=== PATIENT | female | born 1970 ===

== ENCOUNTER 2019-06-05 05:30 | Emergency (ER) | payer BC ==
[2019-06-05] MEDS ORDERED: Morphine 4 MG/ML Syringe IVPUSH ONE (05:43)
[2019-06-05] MEDS ORDERED: Ondansetron 4 MG/2 ML SDV IVPUSH ONE (05:44)
--- NOTE | 2019-06-05 05:45 | EDM.PDOC ---
ED HPI GENERAL MEDICAL PROBLEM - General Chief Complaint: Genitourinary Problem Stated Complaint: BACK PAIN Time Seen by Provider: 06/05/19 05:38 Source of Information: Reports: Patient History Limitations: Reports: No Limitations - History of Present Illness INITIAL COMMENTS - FREE TEXT/NARRATIVE: CC right flank pain HPI: This is a 48-year-old female who awoke with right flank pain this morning. No dysuria or hematuria fever vomiting diarrhea trauma numbness tingling weakness PMHX/PSHX: Hypertension Social History: Negative for tobacco, negative for alcohol, negative for street drugs or marijuana Family history: Hypertension ROS: see chart PE: VS afebrile vital signs stable General: No apparent distress Head: Atraumatic normocephalic no lumps bumps or bruises Eyes: EOMI PERRLA Ears: TMs intact no hemotympanum no signs of infection no mastoid tenderness Nose: No epistaxis nares patent no septal wall hematoma Throat: No pharyngeal erythema or exudate no tonsillar enlargement Neck: Supple, no cervical lymphadenopathy Chest wall: No point tenderness Heart: Regular rate and rhythm without murmur gallop or rub Lungs: Clear to auscultation and percussion without rales rhonchi or wheeze Abdomen: Soft nontender nondistended without guarding rigidity or rebound Neck: No spinal point tenderness full range of motion in all 6 directions Back: No spinal paraspinal or CVA tenderness Extremities: full rom through out. no effusions skin: Warm dry intact no rashes neurologic: cranial nerves II through XII intact. No focal motor or sensory deficits noted MDM: Differential diagnosis: Aortic dissection pyelonephritis ureterolithiasis musculoskeletal back pain ED course: BC chemistries CT scan of the abdomen and pelvis and urinalysis all normal. Patient has no neurologic deficits consistent with cauda equina cord syndrome etc. No evidence of aortic dissection ureterolithiasis or pyelonephritis. I suspect musculoskeletal pain. Patient discharged with prescriptions for ibuprofen Flexeril and Lidoderm patches Diagnosis: Back pain Disposition: Home right lower-mid back Pain Score (Numeric/FACES): 8 - Related Data Allergies Allergy/AdvReac Type Severity Reaction Status Date / Time acetaminophen [From Percocet] Allergy Cannot Verified 06/05/19 05:41 Remember oxycodone HCl [From Percocet] Allergy Difficulty Verified 06/05/19 05:41 Breathing Home Meds: Home Meds FLUoxetine HCl [Fluoxetine HCl] 20 mg PO DAILY 08/04/14 [History] Lisinopril 1 tab PO DAILY 08/04/14 [History] Omeprazole Magnesium [Prilosec Otc] 1 tab PO DAILY 08/04/14 [History] Cyclobenzaprine [Flexeril] 10 mg PO BID #20 tab 06/05/19 [Rx] Ibuprofen 800 mg PO TID #20 tablet 06/05/19 [Rx] Lidocaine 5% [Lidoderm 5%] 1 patch TOP DAILY #20 patch 06/05/19 [Rx] ED ROS GENERAL - Review of Systems Review Of Systems: Comprehensive ROS is negative, except as noted in HPI. ED EXAM, RENAL/ - Physical Exam Exam: See Below Text/Narrative:: See my dictation Course - Vital Signs Last Recorded V/S: Last Vital Signs Temp 36.1 C 06/05/19 05:43 Pulse 82 06/05/19 05:43 Resp 18 06/05/19 05:43 BP 135/92 H 06/05/19 05:43 Pulse Ox 96 06/05/19 05:43 - Orders/Labs/Meds Labs: Laboratory Tests 06/05/19 06/05/19 06/05/19 Range/Units 05:50 05:55 05:55 WBC 6.91 (4.0-11.0) K/uL RBC 4.71 (4.30-5.90) M/uL Hgb 13.7 (12.0-16.0) g/dL Hct 41.5 (36.0-46.0) % MCV 88.1 (80.0-98.0) fL MCH 29.1 (27.0-32.0) pg MCHC 33.0 (31.0-37.0) g/dL RDW Std Deviation 43.9 (28.0-62.0) fl RDW Coeff of Flavio 14 (11.0-15.0) % Plt Count 234 (150-400) K/uL MPV 9.70 (7.40-12.00) fL Neut % (Auto) 42.7 L (48.0-80.0) % Lymph % (Auto) 44.6 H (16.0-40.0) % Sierra % (Auto) 10.1 (0.0-15.0) % Eos % (Auto) 2.3 (0.0-7.0) % Baso % (Auto) 0.3 (0.0-1.5) % Neut # (Auto) 3.0 (1.4-5.7) K/uL Lymph # (Auto) 3.1 H (0.6-2.4) K/uL Sierra # (Auto) 0.7 (0.0-0.8) K/uL Eos # (Auto) 0.2 (0.0-0.7) K/uL Baso # (Auto) 0.0 (0.0-0.1) K/uL Nucleated RBC % 0.0 /100WBC Nucleated RBCs # 0 K/uL Sodium 141 (136-145) mmol/L Potassium 4.0 (3.5-5.1) mmol/L Chloride 104 (98-107) mmol/L Carbon Dioxide 26.4 (21.0-32.0) mmol/L BUN 16 (7.0-18.0) mg/dL Creatinine 0.8 (0.6-1.0) mg/dL Est Cr Clr Drug Dosing 86.75 mL/min Estimated GFR (MDRD) > 60.0 ml/min Glucose 96 (74-106) mg/dL Calcium 9.0 (8.5-10.1) mg/dL Urine Color YELLOW Urine Appearance CLEAR Urine pH 6.0 (5.0-8.0) Ur Specific Prim 1.025 (1.001-1.035) Urine Protein NEGATIVE (NEGATIVE) mg/dL Urine Glucose (UA) NEGATIVE (NEGATIVE) mg/dL Urine Ketones NEGATIVE (NEGATIVE) mg/dL Urine Occult Blood NEGATIVE (NEGATIVE) Urine Nitrite NEGATIVE (NEGATIVE) Urine Bilirubin NEGATIVE (NEGATIVE) Urine Urobilinogen 0.2 (<2.0) EU/dL Ur Leukocyte Esterase NEGATIVE (NEGATIVE) Meds: Medications Discontinued Medications Generic Name Dose Route Start Last Admin Trade Name Freq PRN Reason Stop Dose Admin Ketorolac Tromethamine 15 mg 06/05/19 06:52 Toradol IVPUSH 06/05/19 06:53 ONETIME ONE Morphine Sulfate 4 mg 06/05/19 05:43 06/05/19 06:19 Morphine IVPUSH 06/05/19 05:44 4 mg ONETIME ONE Administration Ondansetron HCl 4 mg 06/05/19 05:44 06/05/19 06:18 Zofran IVPUSH 06/05/19 05:45 4 mg ONETIME ONE Administration Departure - Departure Time of Disposition: 06:56 Disposition: Home, Self-Care 01 Clinical Impression: Back pain Qualifiers: Back pain location: back pain in unspecified location Chronicity: unspecified Back pain laterality: unspecified Qualified Code(s): M54.9 - Dorsalgia, unspecified - Discharge Information Prescriptions: Cyclobenzaprine [Flexeril] 10 mg PO BID #20 tab Ibuprofen 800 mg PO TID #20 tablet Lidocaine 5% [Lidoderm 5%] 1 patch TOP DAILY #20 patch Referrals: Elian Kessler MD [Primary Care Provider] - Forms: ED Department Discharge Additional Instructions: Avoid heavy lifting. Follow-up with your primary care doctor in 2 to 3 days. Apply warm compresses to the sore area. Sepsis Event Note - Focused Exam Vital Signs: Vital Signs Temp Pulse Resp BP Pulse Ox 06/05/19 05:43 36.1 C 82 18 135/92 H 96 Date Exam was Performed: 06/05/19 Time Exam was Performed: 06:55
[2019-06-05 06:28] LABS: BLOOD UREA NITROGEN,BUN 16 mg/dL (7.0-18.0); CARBON DIOXIDE,CO2 26.4 mmol/L (21.0-32.0); CHLORIDE,CL 104 mmol/L (98-107); GLUCOSE RANDOM 96 mg/dL (74-106); SODIUM,NA 141 mmol/L (136-145)
--- NOTE | 2019-06-05 06:45 | CT ---
Indication: Right flank pain Technique: A CT volumetric acquisition was performed of the abdomen and pelvis without IV contrast. Comparison: None available Findings: The lung bases are clear. There is no evidence of pleural or pericardial fluid. The unenhanced liver and spleen demonstrate normal size and uniform density. No inflammatory changes are noted about the pancreas. The gallbladder and bile ducts appear normal. Adrenal glands have normal morphology. Kidneys are symmetric in size. There is no evidence of edema or hydronephrosis. On axial image 58 there is a faint 1 mm calculus within the mid right kidney. There is no evidence of perinephric fluid stranding. There is no evidence retroperitoneal adenopathy. Appendix lies in a retrocecal location but appears normal. No abnormalities are noted within the small intestine or colon. The patient is status post hysterectomy. The ovaries appear normal. Urinary bladder is partially filled and there is no evidence of a bladder calculus or diverticulum. Impression: Right nephrolithiasis but without evidence of ureteral calculus or hydronephrosis. Please note that all CT scans at this facility use dose modulation, iterative reconstruction, and/or weight-based dosing when appropriate to reduce radiation dose to as low as reasonably achievable. Dictated by Rush Gilman MD @ Jun 05 2019 6:31AM Signed by Dr. Rush Gilman @ Jun 05 2019 6:42AM
[2019-06-05] MEDS ORDERED: Ketorolac 15 MG/ML SDV IVPUSH ONE (06:52)
[2019-06-05 07:28] VITALS: BP 123/70; PULSE 71
== END 2019-06-05 07:30 | disposition home or self-care (01) ==
LOC: MW.ED 05:30
DX: M54.5 Low back pain (principal); M54.6 Pain in thoracic spine; Z88.8 Allergy status to other drugs, medicaments and biological substances; Z79.899 Other long term (current) drug therapy
CPT/HCPCS: 36415; 74176; 80048; 81003; 85025; 96374; 96375; 99284; J2270; J2405

== ENCOUNTER 2021-07-23 10:41 | Emergency (ER) | payer BC, OTHER ==
[2021-07-23] MEDS ORDERED: Sodium Chloride 0.9% 2.5 ML Syringe FLUSH PRN (11:04)
[2021-07-23] MEDS ORDERED: Sodium Chloride 0.9% 10 ML Syringe FLUSH PRN (11:04)
[2021-07-23] MEDS ORDERED: Lactated Ringers 1,000 ML IV ONE (11:05)
[2021-07-23] MEDS ORDERED: Ondansetron 4 MG/2 ML SDV IVPUSH ONE (11:06)
[2021-07-23 12:26] LABS: BLOOD UREA NITROGEN,BUN 21 mg/dL (7.0-18.0); CARBON DIOXIDE,CO2 27.7 mmol/L (21.0-32.0); CHLORIDE,CL 100 mmol/L (98-107); GLUCOSE RANDOM 126 mg/dL (74-106); POTASSIUM,K 3.9 mmol/L (3.5-5.1); SODIUM,NA 137 mmol/L (136-145)
[2021-07-23] MEDS ORDERED: Ketorolac 30 MG/ML SDV IVPUSH ONE (12:53)
[2021-07-23 13:12] VITALS: BP 126/74; PULSE 91
[2021-07-23 14:19] LABS: CORONAVIRUS COVID-19 NAA NEGATIVE (NEGATIVE); INFLUENZA A NAA NEGATIVE (NEGATIVE); INFLUENZA B NAA NEGATIVE (NEGATIVE)
== END 2021-07-23 13:04 | disposition home or self-care (01) ==
LOC: MW.ED 10:41
DX: A08.4 Viral intestinal infection, unspecified (principal); I10 Essential (primary) hypertension; K21.9 Gastro-esophageal reflux disease without esophagitis; Z88.5 Allergy status to narcotic agent; Z88.8 Allergy status to other drugs, medicaments and biological substances; Z79.899 Other long term (current) drug therapy; Z20.822 Contact with and (suspected) exposure to COVID-19
CPT/HCPCS: 0240U; 36415; 80053; 83605; 83735; 85025; 87045; 87046; 87449; 87899; 96374; 99284; J2405; J3490; J7120

== ENCOUNTER 2021-10-28 14:32 | Emergency (ER) | payer OTHER ==
[2021-10-28 19:43] VITALS: BP 127/92; PULSE 89
== END 2021-10-28 17:16 | disposition home or self-care (01) ==
LOC: MW.ED 14:32
DX: S09.90XA Unspecified injury of head, initial encounter (principal); S19.9XXA Unspecified injury of neck, initial encounter; I10 Essential (primary) hypertension; Z88.5 Allergy status to narcotic agent; Z88.6 Allergy status to analgesic agent; Z79.899 Other long term (current) drug therapy; V49.40XA Driver injured in collision with unspecified motor vehicles in traffic accident, initial encounter; Y92.410 Unspecified street and highway as the place of occurrence of the external cause
CPT/HCPCS: 70450; 70450-26; 72125; 72125-26; 99284

== ENCOUNTER 2022-10-14 11:15 | Day surgery (SDC) | payer OTHER ==
[~2022-10-14 11:15] MED LIST: Lactated Ringers 1,000 ML IV SCH; Sodium Chloride 0.9% 10 ML Syringe FLUSH PRN; Sodium Chloride 0.9% 2.5 ML Syringe FLUSH PRN; Sodium Chloride 0.9% 20 ML SDV IV PRN
[2022-10-14] MEDS ORDERED: Propofol 200 MG/20 ML SDV ONE (12:10)
[2022-10-14] MEDS ORDERED: Dexmedetomidine 200 MCG/2 ML SDV ONE (13:16)
[2022-10-14 14:40] VITALS: BP 113/57; PULSE 67
== END 2022-10-14 14:10 | disposition home or self-care (01) ==
LOC: MW.SDS 11:15
PROVIDERS: ATTEND Surgery
DX: Z12.11 Encounter for screening for malignant neoplasm of colon (principal); D12.5 Benign neoplasm of sigmoid colon; K31.89 Other diseases of stomach and duodenum; K63.89 Other specified diseases of intestine; K29.50 Unspecified chronic gastritis without bleeding; K21.9 Gastro-esophageal reflux disease without esophagitis; K63.5 Polyp of colon; F41.8 Other specified anxiety disorders; I10 Essential (primary) hypertension; E66.9 Obesity, unspecified; N62 Hypertrophy of breast; M54.2 Cervicalgia; G47.33 Obstructive sleep apnea (adult) (pediatric); Z88.5 Allergy status to narcotic agent; Z91.048 Other nonmedicinal substance allergy status; Z68.42 Body mass index [BMI] 45.0-49.9, adult
CPT/HCPCS: 43239; 45380; J2704; J7120; 00813; J3490